=== PATIENT | female | born 1990 | race Caucasian/White ===

== ENCOUNTER → 2017-04-28 13:09 | Outpatient (CLI) | payer BC, SELFPAY ==
[2017-04-28 14:24] LABS: Absolute Neutrophil Count 5.4 X10^3/uL (2.0-7.7); Basophil# 0.01 X10^3/uL; Basophil% 0.1 % (0-1); Eosinophil# 0.05 X10^3/uL; Eosinophils% 0.7 % (0-5); Hematocrit 36.3 % (37-47); Hemoglobin 11.8 g/dl (12.0-15.0); Lymphocyte % 22.6 % (19-41); Mean Corp Hgb Conc 32.5 g/gl (32-36); Mean Corpuscular Hgb 30.9 pg (27.0-32.0); Mean Platelet Vol. 10.3 fl (6.2-12.0); Monocyte# 0.36 X10^3/uL; Monocyte% 4.8 % (0-10); Neutrophil # 5.38 X10^3/uL (2.7-7.7); Neutrophil % 71.4 % (47-70); Platelet Count 252 K/mm3 (150-450); RBC Distribution Width CV 13.2 % (11.6-14.6); RBC Distribution Width SD 45.8 fl (35.1-43.9); Red Blood Count 3.82 M/mm3 (4.2-5.4); White Blood Count 7.5 K/mm3 (4.4-11.0)
[2017-04-28 14:26] LABS: POSITIVE COUNT NO; POSITIVE DIFFERENTIAL NO; POSITIVE MORPHOLOGY NO
[2017-04-28 14:36] LABS: Glucose Challenge Gest 1H 50g 135 mg/dL (70-140)
== END ==
PROVIDERS: Family Provider Family Medicine; PCP Family Medicine; Visit Provider Obstetrics & Gynecology
DX: Z34.02 Encounter for supervision of normal first pregnancy, second trimester (principal)
CPT/HCPCS: 36415; 82950; 85025

== ENCOUNTER → 2017-05-04 09:05 | Outpatient (CLI) | payer BC, SELFPAY ==
[2017-05-04 10:04] LABS: Glucose GTT-Gestation. Fasting 85 mg/dL (<105)
[2017-05-04 11:22] LABS: Glucose GTT-Gestational 1 Hr 113 mg/dL (<190)
[2017-05-04 13:50] LABS: Glucose GTT-Gestational 2 Hr 82 mg/dL (<165)
[2017-05-04 13:53] LABS: Glucose GTT-Gestational 3 Hr 42 L (<145)
== END ==
PROVIDERS: Family Provider Family Medicine; PCP Family Medicine; Visit Provider Obstetrics & Gynecology
DX: O99.810 Abnormal glucose complicating pregnancy (principal); Z3A.00 Weeks of gestation of pregnancy not specified
CPT/HCPCS: 82951; 82952

== ENCOUNTER → 2017-06-08 15:09 | Outpatient (CLI) | payer BC, SELFPAY | PROVIDERS: Family Provider Family Medicine; PCP Family Medicine; Visit Provider Obstetrics & Gynecology | DX: R80.9 Proteinuria, unspecified (principal) | CPT/HCPCS: 87086; 87088 ==

== ENCOUNTER → 2017-06-22 16:27 | Outpatient (CLI) | payer BC, SELFPAY ==
[2017-06-22 17:34] LABS: Group B Strep DNA By PCR POSITIVE (Negative); Probe Check PASS
== END ==
PROVIDERS: Family Provider Family Medicine; PCP Family Medicine; Visit Provider Obstetrics & Gynecology
DX: Z34.02 Encounter for supervision of normal first pregnancy, second trimester (principal)
CPT/HCPCS: 87653

== ENCOUNTER 2017-07-26 08:15 | Inpatient (IN) | payer BC, SELFPAY ==
--- NOTE | 2017-07-26 08:15 | DT_ITS ---
This patient was seen during an EMR downtime July 20, 2017 - July 27, 2017. This patient may have a combination of paper and electronic documentation or all paper documentation. All documentation is viewable within the e-chart portion of [facility] for each patient visit.
[2017-07-27 09:54] VITALS: BMI 27.1
[2017-07-27 09:56] VITALS: BP 103/54; PULSE 78; RESP 16; TEMP 36.4; O2SAT 98
[2017-07-27] MEDS: Naproxen 250 MG Tablet PO (11:45)
[2017-07-27 12:02] VITALS: BP 105/62; PULSE 81; RESP 16; TEMP 36.4; O2SAT 96
[2017-07-27] MEDS: Acetaminophen 500 MG Tablet 1000 MG PO (15:56)
[2017-07-27 16:00] VITALS: BP 116/60; PULSE 72; RESP 16; TEMP 36.8; O2SAT 98
[2017-07-27] MEDS: oxyCODONE 5 MG Tablet PO (20:52)
[2017-07-27 20:55] VITALS: BP 104/60; PULSE 68; RESP 17; TEMP 36.3
[2017-07-28 01:45] VITALS: BP 96/57; PULSE 71; RESP 17; TEMP 36.6
[2017-07-28] MEDS: Naproxen 250 MG Tablet PO (01:48)
[2017-07-28 07:57] VITALS: BP 97/53; PULSE 72; RESP 16; TEMP 36.7; O2SAT 97
--- NOTE | 2017-07-28 09:19 | PCM.PN.OB ---
- Physical Exam General: Alert, Oriented x3 Lungs: Normal air movement Abdomen: Soft, Non Tender Vital Signs Temp Pulse Resp BP Pulse Ox 98.1 F 72 16 97/53 L 97 07/28/17 07:57 07/28/17 07:57 07/28/17 07:57 07/28/17 07:57 07/28/17 07:57 Oxygen Delivery Method Room Air Weight: 168 lb Body Mass Index (BMI) 27.1 Medical Necessity - Tobacco Use Smoking Status: Former smoker Assessment/Plan All Active Problems (Last Reviewed 07/14/17 @ 10:18 by Lynn Sanders) GBS (group B Streptococcus carrier), +RV culture, currently (Acute) Abnormal glucose affecting (Acute) Supervision of normal (Acute) s/p routine care dc home 3rd degree laceration colace
--- NOTE | 2017-07-28 09:26 | DCINST_ITS ---
Discharge Diet: No Restrictions Discharge Activity: Return to Normal Activity, May not drive while taking narcotic pain medications., May Shower May resume sexual activity in: 4-6 weeks Call your doctor if your incision/area has: Continuous Slow Oozing, Sudden Increased Bleeding, Increased Pain/ Swelling, Increased Redness, Foul Smelling Discharge Additional Instructions: If you experience any of the following, contact your healthcare provider. * Bleeding that soaks a pad every hour for 2 hours * Fever 100.4 or higher * Unrelieved incision or abdominal pain * Swelling, redness, discharge or bleeding from your incision or episiotomy site * Your incision begins to separate * Problems urinating (including inability to urinate or burning while urinating) . * Visual changes * Severe headache * Flu-like symptoms * Pain or redness in one of both of your breasts * Pain, warmth, tenderness or swelling in your legs, especially the calf area * Frequent nausea and vomiting * Symptoms of depression or anxiety If you experience any of the following, call 911 or go to the nearest Emergency Room. * Chest pain * Problems breathing * Seizure activity * Partial or complete paralysis of a body part, slurred speech, weakness or drooping of the face, or a sudden inability to walk or hold your balance Allergies/Adverse Reactions: Allergies penicillin G Allergy (Intermediate, Verified 07/14/17 10:19) allergic Medications to take at Discharge vitamin,calcium,hqrqjgrg-dxyg-esiak acid tablet 1 tab PO QDAY 03/10/17 Docusate Sodium [Colace] 100 mg PO BID #60 cap 07/28/17 Naproxen [Naprosyn] 250 - 500 mg PO Q8H PRN PRN #30 tab 07/28/17 Oxycodone HCl/Acetaminophen [Percocet 5-325] 1 - 2 tablet PO Q4H PRN PRN 7 Days #28 tablet 07/28/17 The following prescriptions were given: Oxycodone HCl/Acetaminophen [Percocet 5-325] 1 - 2 tablet PO Q4H PRN PRN 7 Days #28 tablet PRN Reason: Moderate-Severe pain Naproxen [Naprosyn] 250 - 500 mg PO Q8H PRN PRN #30 tab PRN Reason: MILD PAIN Docusate Sodium [Colace] 100 mg PO BID #60 cap Please Follow Up With: Katie Banda MD - [phone] When: Call to make an appointment with your doctor in 6 weeks. If you had elevated Blood pressure or 4th degree laceration you will need to be seen in 2 weeks. Primary Care Physician: Kary Corley MD [Primary Care Provider] -
[2017-07-28 11:52] LABS: Hemoglobin 12.7 g/dl (12.0-15.0); Red Blood Count 4.07 M/mm3 (4.2-5.4); White Blood Count 10.4 K/mm3 (4.4-11.0)
[2017-07-28 11:53] LABS: Hematocrit 38.3 % (37-47); Mean Corp Hgb Conc 33.2 g/gl (32-36); Mean Corpuscular Hgb 31.2 pg (27.0-32.0); Mean Corpuscular Volume 94.1 fL (81-99); Mean Platelet Vol. 10.8 fl (6.2-12.0); Platelet Count 210 K/mm3 (150-450); RBC Distribution Width CV 12.8 % (11.6-14.6); Scan Indicated on CBC? Y/N NO
[2017-07-28 13:06] VITALS: BP 127/76; PULSE 75; RESP 16; TEMP 36.7; O2SAT 97
[2017-07-28 13:08] VITALS: BP 120/76; PULSE 75; RESP 16; TEMP 36.7; O2SAT 97
== END 2017-07-28 14:20 | disposition home or self-care (01) | DRG 774 ==
PROVIDERS: Admitting Provider Obstetrics & Gynecology; Family Provider Family Medicine; PCP Family Medicine; Visit Provider Obstetrics & Gynecology
DX: O48.0 Post-term pregnancy (principal); O98.82 Other maternal infectious and parasitic diseases complicating childbirth; O70.23 Third degree perineal laceration during delivery, IIIc; Z3A.40 40 weeks gestation of pregnancy; B95.1 Streptococcus, group B, as the cause of diseases classified elsewhere; O76 Abnormality in fetal heart rate and rhythm complicating labor and delivery; O70.9 Perineal laceration during delivery, unspecified; Z37.0 Single live birth
CPT/HCPCS: 59050; 85027; 86850; 86900; 99218; J7120; G0378

== ENCOUNTER → 2021-12-09 | Outpatient (CLI) | payer BC, SELFPAY ==
[2021-12-19 15:48] LABS: HPV APTIMA, High Risk Negative (Negative)
== END | disposition home or self-care (01) ==
PROVIDERS: PCP Family Medicine; Referring Provider Nurse Practitioner Women's Health; Visit Provider Nurse Practitioner Women's Health
DX: Z12.4 Encounter for screening for malignant neoplasm of cervix (principal)
CPT/HCPCS: 87624; 88175; G0145

== ENCOUNTER → 2022-01-13 | Outpatient (CLI) | payer BC, SELFPAY ==
[2022-01-13 11:08] LABS: hCG Titer Quant., Serum 13333 mIU/mL (1-3)
== END | disposition home or self-care (01) ==
LOC: PAVLAB 10:06
PROVIDERS: PCP Family Medicine; Referring Provider Nurse Practitioner Women's Health; Visit Provider Nurse Practitioner Women's Health
DX: Z34.90 Encounter for supervision of normal pregnancy, unspecified, unspecified trimester (principal)
CPT/HCPCS: 36415; 84702

== ENCOUNTER → 2022-01-15 | Outpatient (CLI) | payer BC, SELFPAY ==
[2022-01-15 10:19] LABS: hCG Titer Quant., Serum 23232 mIU/mL (1-3)
== END | disposition home or self-care (01) ==
LOC: PAVLAB 08:59
PROVIDERS: PCP Family Medicine; Referring Provider Nurse Practitioner Women's Health; Visit Provider Nurse Practitioner Women's Health
DX: Z34.90 Encounter for supervision of normal pregnancy, unspecified, unspecified trimester (principal)
CPT/HCPCS: 36415; 84702

== ENCOUNTER → 2022-02-19 | Outpatient (CLI) | payer BC, SELFPAY ==
[2022-02-19 10:26] LABS: Absolute Lymphocyte Count 1.56 X10^3/uL (0.83-4.51); Basophil# 0.01 X10^3/uL; Basophil% 0.2 % (0-1); Eosinophil# 0.07 X10^3/uL; Eosinophils% 1.2 % (0-5); Hematocrit 38.7 % (37-47); Hemoglobin 12.9 g/dL (12.0-15.0); Lymphocyte # 1.56 X10^3/ul (0.83-4.51); Lymphocyte % 25.9 % (19-41); Mean Corp Hgb Conc 33.3 g/dL (32-36); Mean Corpuscular Hgb 30.9 pg (27.0-32.0); Mean Corpuscular Volume 92.8 fL (81-99); Mean Platelet Vol. 9.8 fl (6.2-12.0); Monocyte# 0.36 X10^3/uL; NRBC Flagged by Analyzer 0 % (0-5); Neutrophil % 66.4 % (47-70); Platelet Count 283 K/mm3 (150-450); RBC Distribution Width CV 12.3 % (11.6-14.6); RBC Distribution Width SD 42.1 fl (35.1-43.9); Red Blood Count 4.17 M/mm3 (4.2-5.4)
[2022-02-19 11:21] LABS: NATERA MAILED SPECIMEN
[2022-02-19 11:32] LABS: HIV - WCH Non-Reactive (Nonreactive); Hepatitis B Surface Antigen Non-Reactive (Nonreactive); Hepatitis C Antibody Non-Reactive (Nonreactive); Rubella IgG Reactive (Nonreactive); Syphilis Antibodies Non-reactive
[2022-02-22 06:08] LABS: Chlamydia By Nucleic Acid AMP Negative (Negative)
[2022-02-22 10:23] LABS: Gonococcus By Nucleic Acid AMP Negative (Negative)
== END | disposition home or self-care (01) ==
PROVIDERS: PCP Family Medicine; Referring Provider Obstetrics & Gynecology; Visit Provider Obstetrics & Gynecology
DX: Z34.81 Encounter for supervision of other normal pregnancy, first trimester (principal); Z31.430 Encounter of female for testing for genetic disease carrier status for procreative management
CPT/HCPCS: 36415; 85025; 86703; 86762; 86780; 86803; 86850; 86900; 86901; 87086; 87340; 87491; 87591

== ENCOUNTER → 2022-06-11 | Outpatient (CLI) | payer BC, SELFPAY ==
[2022-06-11 11:06] LABS: Absolute Lymphocyte Count 1.42 X10^3/uL (0.83-4.51); Absolute Neutrophil Count 4.9 X10^3/uL (2.0-7.7); Basophil# 0.02 X10^3/uL; Basophil% 0.3 % (0-1); Eosinophil# 0.05 X10^3/uL; Eosinophils% 0.7 % (0-5); Hemoglobin 12.3 g/dL (12.0-15.0); Lymphocyte # 1.42 X10^3/ul (0.83-4.51); Lymphocyte % 20.8 % (19-41); Mean Corp Hgb Conc 32.4 g/dL (32-36); Mean Corpuscular Hgb 30.6 pg (27.0-32.0); Mean Corpuscular Volume 94.5 fL (81-99); Monocyte# 0.38 X10^3/uL; Monocyte% 5.6 % (0-10); NRBC Flagged by Analyzer 0 % (0-5); Neutrophil # 4.94 X10^3/uL (2.7-7.7); Neutrophil % 72.2 % (47-70); Platelet Count 261 K/mm3 (150-450); RBC Distribution Width CV 12.8 % (11.6-14.6); Red Blood Count 4.02 M/mm3 (4.2-5.4); White Blood Count 6.8 K/mm3 (4.4-11.0)
[2022-06-11 11:16] LABS: Glucose Challenge Gest 1H 50g 121 mg/dL (70-140)
[2022-06-11 11:54] LABS: HIV - WCH Non-Reactive (Nonreactive); Syphilis Antibodies Non-reactive
== END | disposition home or self-care (01) ==
LOC: PAVLAB 10:49
PROVIDERS: PCP Family Medicine; Referring Provider Registered Nurse; Visit Provider Registered Nurse
DX: O09.90 Supervision of high risk pregnancy, unspecified, unspecified trimester (principal)
CPT/HCPCS: 36415; 82950; 85025; 86703; 86780

== ENCOUNTER → 2022-08-13 | Outpatient (CLI) | payer BC, SELFPAY | END | disposition home or self-care (01) | LOC: LABSPEC 13:59 | PROVIDERS: PCP Family Medicine; Referring Provider Obstetrics & Gynecology; Visit Provider Obstetrics & Gynecology | DX: O09.90 Supervision of high risk pregnancy, unspecified, unspecified trimester (principal); Z3A.00 Weeks of gestation of pregnancy not specified | CPT/HCPCS: 87081 ==

== ENCOUNTER 2022-09-09 07:05 | Inpatient (IN) | payer BC, SELFPAY ==
[2022-09-09] VITALS (15 sets, daily range): BP systolic 99–126; BP diastolic 61–74; PULSE 69–98; RESP 18; TEMP 36.1–36.8; O2SAT 97; BMI 27.4
--- NOTE | 2022-09-09 07:39 | HP.PCM.OB_ITS ---
HPI - General General Date of Admission: 09/09/22 Date of Service: 09/09/22 HPI Narrative NILA HOLLINGSWORTH, is a 31 F 40.5 weeks who presents for IOL for postdates. Maternal Data Information JAMIL Calculator Estimated Delivery Date Method Current WG Current Estimate 09/04/22 LMP (Certain) 40w 5d Final JAMIL: 09/04/22 Final JAIML Source: US >20 weeks Gestational age: 40.5 weeks PFSH PFSH Home Medications multivit-min no.71-iron fum 28 mg-folate no.1 1 mg-dha 300 mg capsule (PNV- [place]) cap PO 01/30/22 [History Last Taken Unknown] Allergy/AdvReac Type Severity Reaction Status Date / Time penicillin G Allergy Intermediate allergic Verified 09/03/22 10:39 Family History Brother Down syndrome Mother Twin, mate stillborn, born in hospital Pt's mother had twins one was stillborn surviving twin had down syndrome. Surgical History History of vacuum extraction assisted delivery S/P LASIK surgery of both eyes Social History adopted: No household members: spouse and children housing: house number of children: 1 current occupational status: unemployed pets and animals: Yes pets and animals: dog(s) history of recent travel: Yes ([place]) out of state: Yes out of country: No sexually active: Yes Smoking Status: Former smoker Tobacco: How many years used: 2 alcohol intake: never substance use type: does not use well-balanced diet: daily or most days caffeine: No eating out: 1-3 times/week during the past year weight has: remained stable what type of physical activity do you participate in: walking and weight training frequency: 3-4 times per week duration: 30-45 minutes/day judi/church: Jew seatbelt use: always do you feel safe at home: Yes additional social history: Spouse 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 Date Name GA/Weeks Outcome Route Bth Weight Infant Gen Labor Lgth Anesthesia Del Locatn Provider FOB 07/26/17 Cari Hollingsworth 40 live - full term vacuum 7lbs 9oz 19in Female 24 epidural H ARPAN [place] Delivery Date: 07/26/17 Last Updated by: Lynn Sanders bradycardia 3 degree laceration Visit Details Expected Delivery Route/Plan Labor Preferences- CB/BF classes: no labor support person: Quentin labor intervention preferences: [] pain management options preferred: epidural cut cord/dad catch: no : yes PP control planned: discussed. discussed possible routes of delivery and associated risks: [] special requests: [] Plans Covid status: declines vaccine Flu vaccine: declines Tdap vaccine: declines Rhogam: NA LARC form signed: yes movement and labor precautions reviewed. Problem list reviewed and updated with the most current plan of care details and appropriate orders placed. Relevant counseling for the gestational age provided. Continue routine care and follow up unless otherwise noted in visit notes/problem list details OB Flowsheet Initial Weight: Not Recorded Date -?-?-?-?-?-?-?-?-?-?-?-?- EGA Weight BP Urine Prot -?-?-?-?-?-?-?-?-?-?-?-?- Glucose FHR FuHt Pres Dilation -?-?-?-?-?-?-?-?-?-?-?-?- Effaced St Visit Note 02/19/22 -?-?-?-?-?-?-?-?-?-?-?-?- 11w 6d 133 lb 6 oz 113/73 -?-?-?-?-?-?-?-?-?-?-?-?- 175 -?-?-?-?-?-?-?-?-?-?-?-?- JV- single live IUP measuring 11 weeks 6 days and consistent with LMP. carrier and NIPT ordered. 03/18/22 -?-?-?-?-?-?-?-?-?-?-?-?- 15w 5d 141 lb 4 oz 112/68 Nega tive -?-?-?-?-?-?-?-?-?-?-?-?- Negative 156 -?-?-?-?-?-?-?-?-?-?-?-?- MH-No Vb, crampi ng. 1+gene on carrier screen and will be tested. MFM US ordered. 04/15/22 -?-?-?-?-?-?-?-?-?-?-?-?- 19w 5d 150 lb 4 oz 120/73 Nega tive -?-?-?-?-?-?-?-?-?-?-?-?- Negative 150 -?-?-?-?-?-?--?-?-?-?-?-?- SM- no vb lof go od fm no reuglar ctx 05/12/22 -?-?-?-?-?-?-?-?-?-?-?-?- 23w 4d 151 lb 8 oz 106/69 Nega tive -?-?-?-?-?-?-?-?-?-?-?-?- Negative 150 23 -?-?-?-?-?-?-?-?-?-?-?-?- LC- no lof/vb/ct x. good movement. declines additional genetic screening as obtained expansive panel. 28 week labs ordered. 06/11/22 -?-?-?-?-?-?-?-?-?-?-?-?- 27w 6d 157 lb 4 oz 110/72 Nega tive -?-?-?-?-?-?-?-?-?-?-?-?- Negative 146 28 -?-?-?-?-?--?-?-?-?-?-?-?- -No VB, LOF. G ood FM. Nl 28 wk labs, larc. Declines tdap. 06/20/22 -?-?-?-?-?-?-?-?-?-?-?-?- 29w 1d 160 lb 110/73 Negative -?-?-?-?-?--?-?-?-?-?-?-?- Negative 145 29 -?-?-?-?-?-?-?-?-?-?-?-?- SM- no vb lof go od fm no regular ctx 07/07/22 -?-?-?-?-?-?-?-?-?-?-?-?- 31w 4d 160 lb 118/73 Negative -?-?-?-?-?-?-?-?-?-?-?-?- Negative 137 32 -?-?-?-?-?-?-?-?-?-?-?-?- LC- no vb/ctx/lo f. good fm. 07/22/22 -?--?-?-?-?-?-?-?-?-?-?-?- 33w 5d 165 lb 123/72 Negative -?-?-?-?-?-?-?-?-?-?-?-?- Negative 151 33 -?-?-?-?-?-?-?-?-?-?-?-?- MH-No VB, LOF. G ood FM. Seeing Dr Cano for left rib pain. She thinks more nerve issue. Getting massage/note given. 08/05/22 -?-?-?-?-?-?-?-?-?-?-?-?- 35w 5d 164 lb 115/76 Negative -?-?-?-?-?-?-?-?-?-?-?-?- Negative 131 36 Cephalic -?-?-?-?-?-?-?-?-?-?-?-?- JV- no lof, vagi nal bleeding, or dec fm. 08/13/22 -?-?-?-?-?-?-?-?-?-?-?-?- 36w 6d 166 lb 2 oz 124/81 Nega tive -?-?-?-?-?-?-?-?-?-?-?-?- Negative 134 36 Cephalic 0 -?-?-?-?-?-?-?-?-?-?-?-?- JV- gbs collecte d. no lof ,vaginal bleeding, or dec fm. 08/22/22 -?-?-?-?-?-?-?-?-?-?-?-?- 38w 1d 168 lb 2 oz 123/83 -?-?-?-?-?-?-?-?-?-?-?-?- 135 37 38 Cephalic 1 -?-?-?-?-?-?-?-?-?-?-?-?- 20 - Sm- no vb lof good fm no regular ctx 08/27/22 -?-?-?-?-?-?-?-?-?-?-?-?- 38w 6d 170 lb 125/80 Negative -?-?-?-?-?--?-?-?-?-?-?-?- Negative 145 39 Cephalic 1 -?-?-?-?-?-?-?-?-?-?-?-?- -3 Lc- no ctx /lof/vb. good fm. no concerns. 09/03/22 -?-?-?-?-?-?-?-?-?-?-?-?- 39w 6d 170 lb 4 oz 135/86 Nega tive -?-?-?-?-?-?-?-?-?-?-?-?- Negative 140 40 Cephalic 1 -?-?-?-?-?-?-?-?-?-?-?-?- - JV- no lof , vaginal bleeding, or dec fm. IOL on next thursday. NST FHR Rate Baby A Baseline: 135 Variability:: Moderate Accelerations:: 15 x 15 Decelerations:: None NST Reactive:: Yes FHR Category:: Category I Uterine Activity:: irregular ROS Constitutional Constitutional: Denies change in weight, fatigue, fever(s), headache(s), poor appetite or weakness Eyes Eyes: Denies blurry vision, change in vision, floaters, seeing flashes or spots in vision ENT HEENT: Denies dizziness, headache(s), loss taste/smell or sore throat Cardiovascular Cardiovascular: Denies chest pain, dizziness, dyspnea, irregular heart rhythm, lightheadedness, palpitations or rapid heart rate Respiratory/Chest Respiratory/Chest: Denies change in mental status, chest tightness, cough, dyspnea or breast pain Gastrointestinal Gastrointestinal: Denies anorexia, chewing difficulty, constipation, diarrhea or weight changes Genitourinary Genitourinary: Denies difficulty urinating, dysuria, flank pain, genital pain, urinary frequency or urinary urgency Musculoskeletal Musculoskeletal: Denies back pain, difficulty walking, extremity pain, joint pain, muscle cramps or muscle weakness Integumentary Integumentary: Denies lesions or unusual bruising Neurologic Neurologic: Denies abnormal movements, abnormal speech, dizziness, numbness, seizure-like activity, syncope or weakness Psychiatric Psychiatric: Denies behavioral changes, change in appetite, confusion, depression, homicidal ideation, suicidal ideation or suicidal thoughts Endocrine Endocrinology: Denies excessive sweating, polydipsia or polyuria Hematologic/Lymphatic Hematologic/Lymphatic: Denies anemia Allergic/Immunologic Allergic/Immunologic: Denies itchy eyes, lip swelling, throat swelling, tongue swelling or wheezing Vital Signs Vital Signs Vital Signs: Weight Weight: 170 lb Body Mass Index (BMI) 27.4 Physical Exam Const alert, oriented x3 and no apparent distress General Appearance: cooperative Orientation / Consciousness: awake HEENT normocephalic Neck full ROM Lymph Lymphatic: no lymphadenopathy noted Chest inspection of chest normal Resp normal respiratory effort and normal air movement Effort and Inspection: able to speak in complete sentences and symmetric chest movement GI soft to palpation and non-tender Inspection: gravid Palpation: soft; Negative for tender external exam normal Manual OB Exam: estimated gestational size appropriate, presentation cephalic, dilated 2, effaced 60 and station -2 Back/Spine normal to inspection Extremity normal to inspection and full ROM Skin no rashes or lesions noted Psych mental status grossly normal Appearance: grossly normal Speech: normal speech Labs Labs Labs: Blood Type O POSITIVE Antibody Screen NEGATIVE Hct 38.0 % (37-47) Hgb 12.3 g/dL (12.0-15.0) Obstetrics US Syphilis Total Ab Non-reactive Rubella IgG Antibody Reactive (Nonreactive) Hep Bs Antigen Non-Reactive (Nonreactive) Chlamydia DNA (WILD) Negative (Negative) Neisseria gonorrhoeae DNA (WILD) Negative (Negative) HIV 1&2 Antibody Non-Reactive (Nonreactive) Glucose 1 Hr 50 gm 121 mg/dL (70-140) Group B Strep DNA POSITIVE (Negative) H Rhogam given: No Assessment & Plan (1) Encounter for induction of labor: PLAN: Patient presents IOL, plan management for with pitocin/AROM. Pain management: plans epidural. GBS negative. Management of any complications: none I have reviewed the [facility] and made any clinically relevant updates. 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 tested and negative (5) Infertility: COMMENT: took pt 18 months to conceive. was on testosterone. Charges/Coding Multi Select Codes Urinary/Genital Urinary/Genital CPT Codes: No Charge
[2022-09-09] MEDS: Lactated Ringers 1,000 ML 50 ML IV (08:30)
[2022-09-09] MEDS: Oxytocin 15 Units/NS 250ml 15 UNITS/250 ML IV.SOLN 2 UNITS IV (08:50)
[2022-09-09 09:16] LABS: Absolute Lymphocyte Count 1.54 X10^3/uL (0.83-4.51); Basophil# 0.01 X10^3/uL; Basophil% 0.1 % (0-1); Eosinophil# 0.03 X10^3/uL; Eosinophils% 0.4 % (0-5); Hemoglobin 11.5 g/dL (12.0-15.0); Lymphocyte # 1.54 X10^3/ul (0.83-4.51); Lymphocyte % 21.6 % (19-41); Mean Corp Hgb Conc 31.9 g/dL (32-36); Mean Corpuscular Hgb 29.4 pg (27.0-32.0); Mean Corpuscular Volume 92.1 fL (81-99); Mean Platelet Vol. 11.2 fl (6.2-12.0); Monocyte# 0.48 X10^3/uL; Monocyte% 6.7 % (0-10); NRBC Flagged by Analyzer 0 % (0-5); Neutrophil # 5.03 X10^3/uL (2.7-7.7); Neutrophil % 70.6 % (47-70); Platelet Count 242 K/mm3 (150-450); RBC Distribution Width CV 13.1 % (11.6-14.6); RBC Distribution Width SD 43.9 fl (35.1-43.9); Red Blood Count 3.91 M/mm3 (4.2-5.4); White Blood Count 7.1 K/mm3 (4.4-11.0)
[2022-09-09 09:50] LABS: Syphilis Antibodies Non-reactive
[2022-09-09] MEDS: fentaNYL 100 MCG/2 ML Ampul IV (15:17)
[2022-09-09] MEDS: LACTATED RINGERS 500 ML 999 ML IV (15:25)
[2022-09-09] MEDS: Lidocaine 1% (20 ml mdv) 20 ML Vial INFILT (17:00)
[2022-09-09] MEDS: Oxytocin 15 Units/NS 250ml 15 UNITS/250 ML IV.SOLN 163 UNITS IV (17:35)
--- NOTE | 2022-09-09 17:45 | OP.PCM_ITS ---
Assessment & Plan (1) Vaginal delivery: COMMENT: KW 40.5 IOL Boy Jose G (2) Supervision of high risk , antepartum: COMMENT: [id number], JAMIL 09/04/22 boy MARGE Havedariela Tim (3) : QUALIFIERS: Weeks of gestation: 39 weeks Qualified Code(s): Z3A.39 - 39 weeks gestation of COMMENT: GBS neg, anatomy nl, NIPT low risk, discussed Carrier testing:+caravan gene. tested and negative (4) Infertility: COMMENT: took pt 18 months to conceive. was on testosterone. Maternal Data Information JAMIL Calculator Estimated Delivery Date Method Current WG Current Estimate 09/04/22 LMP (Certain) 40w 5d Final JAMIL: 09/04/22 Final JAMIL Source: US >20 weeks Gestational age: 40.5 weeks Vaginal Delivery Maternal Presentation Maternal Presentation: Progressed quickly to 10cm dilated and made steady progress with effective maternal pushing. Delivered the head in ADRIENNE presentation. The head was delivered atraumatically and a loose nuchal cord was identified and infant delivered through. The anterior and posterior shoulders delivered without complication followed by the rest of the and the was placed on the maternal abdomen. Delayed cord clamping was employed for approximately 5 minutes. Cord was clamped and cut and gentle traction was applied to the cord and the placenta delivered spontaneously. Immediately following, it was noted to be intact with a 3 vessel cord. The perineum and vagina were inspected and noted to have a first degree laceration and an anterior extension to the urethra. Dr Aguilera called to assist with repair EBL was 200cc. Patient and tolerated delivery well. Apgars 8/9. Dr Fry notified of vaginal delivery and orders reviewed. Physician agrees with current plan of care. 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: Loreta Esteves Type of Anesthesia: Local with 1% Lidocaine Estimated Blood Loss: 200 Time of Delivery: 16:31 Findings Presentation: Vertex Amniotic Membrane Rupture Type: Spontaneous Amniotic Fluid Description: Clear Placental Delivery Description: Spontaneous Placenta Disposition: [facility] Cord Vessel Description: 3 Vessels Cord Entanglement: Around neck x 1, loose A Gender: Male (1 minute): 8 (5 minute): 9 Delayed Cord Clamping: Yes Post Vaginal Delivery Medications Given After Delivery: IV Pitocin Episiotomy Description: None Laceration: Periurethral Extnsion/lac (Dr Aguilera called to assist with repair) and 1st degree Complication Complications: None Multi Select Codes Urinary/Genital Urinary/Genital CPT Codes: 13734 Vaginal Delivery [facility]
[2022-09-09] MEDS: Ibuprofen 600 MG Tablet PO (18:15)
[2022-09-09] MEDS: Acetaminophen 500 MG Tablet 1000 MG PO (20:44)
[2022-09-10 00:07] VITALS: BP 104/64; PULSE 73; RESP 16; TEMP 36.8; O2SAT 96
[2022-09-10] MEDS: Ibuprofen 600 MG Tablet PO ×2 (00:12→06:34)
[2022-09-10 03:03] VITALS: BP 101/56; PULSE 73; RESP 16; TEMP 36.7; O2SAT 96
[2022-09-10] MEDS: Acetaminophen 500 MG Tablet 1000 MG PO ×3 (03:06→16:58)
--- NOTE | 2022-09-10 08:04 | PN.OBGYN_ITS ---
Subjective Subjective Patient doing well without complaints. Tolerating PO. Ambulating and voiding without difficulty. Feeding well. Denies chest pain, shortness of breath, calf pain/swelling, fevers, chills, lightheadedness. Objective Data Objective Data Vital Signs: Vital Signs Temp Pulse Resp BP Pulse Ox O2 Del Method 98.0 F 73 16 101/56 L 96 Room Air 09/10/22 03:03 09/10/22 03:03 09/10/22 03:03 09/10/22 03:03 09/10/22 03:03 09/10/22 03:03 Oxygen Delivery Method Room Air Weight: 170 lb Body Mass Index (BMI) 27.4 Intake & Output: Intake and Output for Last 24 Hours 09/08/22 09/09/22 09/10/22 23:59 23:59 23:59 Intake Total 2000.00 / 2000.00 Output Total 900 / 900 400 / 400 Balance 1100.00 / 1100.00 -400 / -400 Lab / Micro Data 09/09/22 08:33 Labs: Laboratory Results - last 24 hr 09/09/22 08:33: WBC 7.1, RBC 3.91 L, Hgb 11.5 L, Hct 36.0 L, MCV 92.1, MCH 29.4, MCHC 31.9 L, RDW Std Deviation 43.9, RDW Coeff of Shay 13.1, Plt Count 242, MPV 11.2, Immature Gran % (Auto) 0.600, Neut % (Auto) 70.6 H, Lymph % (Auto) 21.6, [place] % (Auto) 6.7, Eos % (Auto) 0.4, Baso % (Auto) 0.1, Absolute Neuts (auto) 5.0, Absolute Lymphs (auto) 1.54, Nucleated RBC % 0, Syphilis Total Ab Non- reactive, Blood Type O POSITIVE, Antibody Screen NEGATIVE Physical Exam Const alert and oriented x3 HEENT normocephalic Eyes PERRL Neck full ROM Resp normal respiratory effort GI soft to palpation GI Narrative: FF below U Assessment & Plan (1) Vaginal delivery: COMMENT: KW 40.5 IOL Boy Jose G PLAN: Plan s/p PPD # 1 1. routine post delivery care 2. breast feeding- support given 3. rh positive 4. rubella immune
[2022-09-10 08:32] VITALS: BP 196/92; PULSE 77; RESP 16; TEMP 36.4; O2SAT 96
--- NOTE | 2022-09-10 10:18 | DCINST_ITS ---
Discharge Instructions Diet Discharge Diet: No restrictions Activity Discharge Activity: Return to Normal Activity, May Not Drive (while taking narcotic pain medications.) and May Shower May resume sexual activity in: 4-6 weeks Dressing / Incision Call your doctor if your incision/area has: Continuous Slow Oozing, Sudden Increased Bleeding, Increased Pain/ Swelling, Increased Redness and Foul Smelling Discharge Follow Up Care Please Follow Up With: Sobia Aguilera, DO When: Call [phone] to make an appointment with your doctor in 6 weeks. If you had elevated blood pressure or 4th degree laceration, you will need to be seen in 2 weeks. Test Results: Test results from this visit will be discussed in further detail at your follow- up appointment, if applicable. Discharge Plan Admission Admit Date/Time: 09/09/22 07:05 Attending Provider: Sobia Aguilera Primary Care Provider: Kary Corley Discharge Orders/Prescriptions Prescriptions: No Action PNV-[place] 28-1-300 mg capsule PO Referrals / Follow Up: Kary Corley MD [Primary Care Provider] - Disposition Disposition (needs filled in before D/C Order can be placed): Home, Self Care
[2022-09-10 13:28] VITALS: BP 117/66; PULSE 70; RESP 16; TEMP 36.6; O2SAT 96
[2022-09-10 17:04] VITALS: BP 122/76; PULSE 78; TEMP 36.7; O2SAT 97
[2022-09-10 18:00] VITALS: BP 110/70; PULSE 74; RESP 16; TEMP 36.7
== END 2022-09-10 18:05 | disposition home or self-care (01) | DRG 807 ==
PROVIDERS: Admitting Provider Obstetrics & Gynecology; PCP Family Medicine; Referring Provider Obstetrics & Gynecology; Visit Provider Obstetrics & Gynecology
DX: O48.0 Post-term pregnancy (principal); Z37.0 Single live birth; O69.81X0 Labor and delivery complicated by cord around neck, without compression, not applicable or unspecified; O70.0 First degree perineal laceration during delivery; O71.82 Other specified trauma to perineum and vulva; Z3A.40 40 weeks gestation of pregnancy; Z87.891 Personal history of nicotine dependence
CPT/HCPCS: 59025; 59050; 85025; 86780; 86850; 86900; 86901; 99221; J7120; G0378